=== PATIENT | male | born 1965 | race Caucasian/White ===

== ENCOUNTER → 2023-04-19 | Outpatient (CLI) | payer OTHER ==
--- NOTE | 2023-04-19 12:08 | XR ---
EXAMINATION TYPE: XR chest 2V DATE OF EXAM: 04/19/2023 12:02 PM COMPARISON: Chest radiographs from 10/21/2015 TECHNIQUE: XR chest 2V Frontal and lateral views of the chest. CLINICAL INDICATION:Male, 57 years old with history of J449 COPD; FINDINGS: Lungs/Pleura: There is flattening of the diaphragm with increased lucency of the lungs. No evidence o f pneumothorax, pleural effusion or focal consolidation. Pulmonary vascularity: Unremarkable. Heart/mediastinum: Cardiomediastinal silhouette is unremarkable. Musculoskeletal: No acute osseous pathology. IMPRESSION: 1. No acute cardiopulmonary disease process. 2. COPD changes.
== END | disposition home or self-care (01) ==
LOC: RADXRYALE 11:53
PROVIDERS: ATTEND Internal Medicine
DX: J44.9 Chronic obstructive pulmonary disease, unspecified (principal)
CPT/HCPCS: 71046

== ENCOUNTER → 2025-03-03 | Outpatient (CLI) | payer OTHER ==
--- NOTE | 2025-03-03 14:33 | XR ---
EXAMINATION TYPE: XR lumbar spine 2 or 3V DATE OF EXAM: 03/03/2025 2:28 PM COMPARISON: None. CLINICAL INDICATION: Male, 59 years old with history of M54.50, M54.2, TECHNIQUE: 3 views obtained FINDINGS: There are 5 lumbar type vertebral bodies identified. The lumbar spine shows satisfactory alignment without evidence of acute fracture or dislocation. Vertebral body heights are within normal limits. Mild multilevel degenerative disc disease at L1-2 through L4-5. Severe degenerative narrowin g L5-S1. Mild facet joint arthropathy. The overlying soft tissue appears unremarkable. IMPRESSION: No acute fracture or dislocation is seen in the lumbar spine.ICD 10 NO FRACTURE, INITIAL EVALUATION [facility], , 03/03/2025 2:31 PM
--- NOTE | 2025-03-03 14:35 | XR ---
EXAMINATION TYPE: XR cervical spine comp DATE OF EXAM: 03/03/2025 2:28 PM COMPARISON: None. CLINICAL INDICATION: Male, 59 years old with history of M54.50, M54.2, TECHNIQUE: Frontal, lateral, oblique, swimmers, and open mouth view of the cervical spine are obtaine d. FINDINGS: The cervical spine is visualized in its entirety from C1 thru the top of T1 level. It is s atisfactory in alignment without evidence of acute fracture or dislocation. The pre-vertebral soft t issue appears within normal limits. Severe multilevel degenerative disc space narrowing and spondylos is.. The C1-C2 articulation is unremarkable on the open mouth view. The oblique images are within no rmal limits. IMPRESSION: No acute fracture or dislocation is seen in the cervical spine.ICD 10 NO FRACTURE, INITI AL EVALUATION [facility], , 03/03/2025 2:33 PM
== END | disposition home or self-care (01) ==
LOC: RADXRMAIN 13:54
PROVIDERS: ATTEND Family Medicine
DX: M51.360 Other intervertebral disc degeneration, lumbar region with discogenic back pain only (principal); M47.816 Spondylosis without myelopathy or radiculopathy, lumbar region; M50.30 Other cervical disc degeneration, unspecified cervical region; M47.812 Spondylosis without myelopathy or radiculopathy, cervical region
CPT/HCPCS: 72050; 72100